=== PATIENT | male | born 1990 | race Caucasian/White ===

== ENCOUNTER 2017-10-26 11:47 | Inpatient (IN) | payer SELFPAY ==
[2017-10-26 12:27] LABS: Urine Appearance Clear; Urine Blood Negative (Negative); Urine Color Yellow; Urine Ketones Negative (Negative); Urine Protein Negative (Negative); Urine Specific Gravity 1.021 (1.010-1.030); Urine Urobilinogen Negative (Negative)
[2017-10-26 13:40] LABS: ABS Basophils 0 10^3/ul (0-0.2); ABS Eosinophils 0.1 10^3/ul (0-0.6); ABS Lymphocytes 1.7 10^3/ul (1.0-4.8); ABS Monocytes 0.3 10^3/ul (0-0.8); ABS Neutrophils 2.4 10^3/ul (1.5-7.7); ABS Nucleated RBC 0 10^3/ul; Eosinophil % 2.7 % (0-6); Hematocrit 40 % (42-52); Hemoglobin 13.6 g/dl (14.0-18.0); Lymphocyte % 37.5 % (25-47); Mean Corpuscular HGB Conc 34 g/dl (31-36); Mean Corpuscular Hemoglobin 30 pg (27-31); Mean Corpuscular Volume 87 fL (80-94); Mean Platelet Volume 7.6 um3 (7.4-10.4); Nucleated Red Blood Cells % 0; Platelet Count 279 10^3/ul (150-450); Red Blood Count 4.58 10^6/ul (4.0-5.4); Red Cell Distribution Width 13 % (10.5-15); White Blood Count 4.6 10^3/ul (3.5-10.8)
[2017-10-26 14:00] LABS: EGFR Non-African American 90.3 (>60)
[2017-10-26] MEDS ORDERED: Acetaminophen TAB* 325 MG PO PRN (15:05)
[2017-10-26] MEDS ORDERED: Al Hydrox/Mg Hydrox/Simet LIQ* 30 ML UDC PO PRN (15:05)
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
[2017-10-27] MEDS ORDERED: Vitamin THERAPEUTIC TAB ONE (09:07)
[2017-10-27] MEDS: Vitamin THERAPEUTIC TAB PO SCH (09:07)
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
[2017-10-28 08:09] VITALS: BP 99/72
[2017-10-28] MEDS: Vitamin THERAPEUTIC TAB PO SCH (08:52)
--- NOTE | 2017-10-28 14:48 | DS ---
Subjective - Subjective Service Types: [id number] [facility] DC Day Mgmt simple under 30 min Discharge Date: 10/28/17 Subjective: Patient reports "I want to live." He state he has had multiple supportive conversations with his parents and ex-girlfriend. He hopes to attend weekly talk therapy. He states he learned much from programming on the unit and wants to be better at time management. He expressed interest in volunteering and policy writer sales gave him suggestions of [facility] and [facility]. Objective - Appearance Appearance: Well Developed/Nourished Dysmorphic Features: No Hygiene: Normal Grooming: Well Kept - Behavior Psychomotor Activities: Normal Exhibits Abnormal Movement: No - Attitude and Relatedness Attitude and Relatedness: Cooperative Eye Contact: Good - Speech Quality: Unpressured Latencies: Normal Quantity: Appropriate - Mood Patient's Decription of Mood: "Good" - Affect Observed Affect: Good Affect Consistent with: Euthymia - Thought Process Patient's Thought Process: Coherent, Goal Directed Thought Content: No Passive Wish, No Suicidal Planning, No Homicidal Ideation, No Paranoid Ideation - Sensorium Experiencing Hallucinations: No, Sensorium is Clear Type of Hallucinations: Visual: No, Auditory: No, Command: No - Level of Consciousness Level of Consciousness: Alert Orientation: Yes Intact, Yes Orientated to Time, Yes Orientated to Place, Yes Orientated to Person - Impulse Control Impulse Control: Intact - Insight and Judgement Insight and Judgement: Good - Group Participation Particating in Group Activities: Yes - Medication Management Medication Management Adherence: No - none ordered Treatment Course & Assessment Clinical Course & Impression: Patient presented to ED as suggested by intake high school social studies tutor at [facility]. He reports increased depressed mood, anxiety and onset of suicidal thoughts. He has been financially strained due to loss of job, transportation and housing. He started a job this week and is hopeful yet anxious. Patient was admitted to adult BSU on voluntary status. He was placed on 15min checks for safety and participated in therapeutic milieu and programming. He participated in psychiatric interview and endorsed depressive symptoms. He declined offer of psychopharmacology. He states he would prefer to pursue therapy first. Patient requested to be discharged the first day but was agreeable to remain at least another day for full evaluation and benefit of programming. Patient's family members visited and were supportive. He learned about family history of depression and was surprised when his parents shared their experiences. Halina Willoughby LMSW contacted patient's father and verified agreement with discharge plan. Patient was coordinated with medicaid navigator to assist with health care insurance. He was given an appt at [facility] to re-establish primary care. Merits Inpatient Hospitalization: No Clear for Discharge: Adequate Clinical Respons, Acceptable Safety Profile, Low Utility of Inpt Care Inpatient DSM-V Dx: F32.89 Discharge Planning - Discharge Planning Discharge Plan: Outpatient Follow Up Outpatient [facility]: [facility] Recommendations for Continuing Care: Psychotherapy, Primary Care Followup Medications: none. Discharge Planning: Prescriptions provided for discharge [] Yes [X] No Follow up care details: PCP: Dr Argueta on Wednesday, november 03 at 3:20pm. [facility]: You have an intake scheduled on Wednesday (tomorrow) at 9:30 with Billie Werner Patient response to discharge plan: [X] eager for discharge [X] agreeable with discharge plan [] ambivalent about discharge [] disagrees with discharge today
== END 2017-10-28 12:10 | disposition home or self-care (01) | DRG 885 ==
LOC: ED 11:47 → BSU 15:05 → ED 16:14
PROVIDERS: ADMIT Psychiatry & Neurology Psychiatry; ATTEND Psychiatry & Neurology Psychiatry
DX: F32.89 Other specified depressive episodes (principal); R45.851 Suicidal ideations; F41.9 Anxiety disorder, unspecified; Z62.810 Personal history of physical and sexual abuse in childhood; F12.10 Cannabis abuse, uncomplicated; Z83.3 Family history of diabetes mellitus; Z81.8 Family history of other mental and behavioral disorders; Z72.89 Other problems related to lifestyle
CPT/HCPCS: 36415; 80053; 80307; 80320; 80329; 81003; 84443; 85025; 99222; 99238; 99284; A9270-GY; G0480

== ENCOUNTER 2019-02-02 16:39 | Inpatient (IN) | payer SELFPAY ==
--- NOTE | 2019-02-02 17:21 | ED ---
Psychiatric Complaint - HPI Summary HPI Summary: This patient is a 28 year old M presenting [facility] accompanied by parents with a chief complaint of depression since last month. Pt says he is getting in his head, feeling sad. This may have been triggered by past relationship and work. Pt has a possible Hx of depression. He reports he does not currently have thoughts of hurting himself. - History Of Current Complaint Chief Complaint: EDMentalHealth Time Seen by Provider: 02/02/19 17:11 Hx Obtained From: Patient Onset/Duration: Lasting Weeks Timing: Weeks Character: Depressed Aggravating Factor(s): Recent Stress Alleviating Factor(s): Nothing Related History: Positive For: Prior Psychiatric Issues Recent Stressor(s): Relationship, Job - Allergies/Home Medications Allergies/Adverse Reactions: Allergies Allergy/AdvReac Type Severity Reaction Status Date / Time No Known Allergies Allergy Verified 02/02/19 20:41 PMH/Surg Hx/FS Hx/Imm Hx Endocrine/Hematology History: Denies: Hx Diabetes, Hx Thyroid Disease Cardiovascular History: Denies: Hx Congestive Heart Failure, Hx Deep Vein Thrombosis, Hx Hypertension , Hx Myocardial Infarction, Hx Pacemaker/ICD Respiratory History: Reports: Hx Asthma - pt reports hx of "in elementary school " Denies: Hx Chronic Obstructive Pulmonary Disease (COPD), Hx Lung Cancer, Hx Pneumonia, Hx Pulmonary Embolism GI History: Denies: Hx Gall Bladder Disease, Hx Gastrointestinal Bleed, Hx Ulcer, Hx Urosepsis History: Denies: Hx Kidney Stones, Hx Renal Disease Sensory History: Denies: Hx Contacts or Glasses, Hx Hearing Aid Opthamlomology History: Denies: Hx Contacts or Glasses Neurological History: Denies: Hx Dementia, Hx Migraine, Hx Seizures, Hx Transient Ischemic Attacks (TIA) Psychiatric History: Denies: Hx Anxiety, Hx Attention Deficit Hyperactivity Disorder, Hx Eating Disorder, Hx Depression, Hx Panic Disorder, Hx Post Traumatic Stress Disorder, Hx Inpatient Treatment, Hx Community Mental Health Tx, Hx Schizophrenia, Hx Bipolar Disorder, Hx Suicide Attempt, Hx of Violent Episodes Against Others, Hx Substance Abuse, Other Psychiatric Issues/Disorders - Surgical History Surgery Procedure, Year, and Place: pt denies surgical hx Infectious Disease History: No Infectious Disease History: Denies: Hx Clostridium Difficile, Hx Hepatitis, Hx Human Immunodeficiency Virus (HIV), Hx of Known/Suspected MRSA, Hx Shingles, Hx Tuberculosis, Hx Known/ Suspected VRE, Hx Known/Suspected VRSA, History Other Infectious Disease, Traveled Outside the [place] in Last 30 Days - Family History Known Family History: Positive: Diabetes - Mother Negative: Cardiac Disease, Hypertension, Seizure Disorder, Blood Disorder Family History: Mother: depression - Social History Occupation: Employed Full-time Alcohol Use: Occasionally Alcohol Amount: pt reports drinking alcohol a "few times a month" Substance Use Type: Reports: Marijuana Substance Use Comment - Amount & Last Used: pt reports using a "few times a month" Smoking Status (MU): Light Every Day Tobacco Smoker Amount Used/How Often: pt denies tobacco use Length of Time of Smoking/Using Tobacco: pt denies tobacco use Have You Smoked in the Last Year: No Review of Systems Negative: Fever Positive: Depressed All Other Systems Reviewed And Are Negative: Yes Physical Exam - Summary Physical Exam Summary: VITAL SIGNS: Reviewed. GENERAL: Patient is a well-developed and nourished male who is lying comfortable in the stretcher. Patient is not in any acute respiratory distress. HEAD AND FACE: No signs of trauma. No ecchymosis, hematomas or skull depressions. No sinus tenderness. EYES: PERRLA, EOMI x 2, No injected conjunctiva, no nystagmus. EARS: Hearing grossly intact. Ear canals and tympanic membranes are within normal limits. MOUTH: Oropharynx within normal limits. NECK: Supple, trachea is midline, no adenopathy, no JVD, no carotid bruit, no c- spine tenderness, neck with full ROM. CHEST: Symmetric, no tenderness at palpation. LUNGS: Clear to auscultation bilaterally. No wheezing or crackles. CVS: Regular rate and rhythm, S1 and S2 present, no murmurs or gallops appreciated. ABDOMEN: Soft, non-tender. No signs of distention. No rebound, no guarding, and no masses palpated. Bowel sounds are normal. EXTREMITIES: FROM in all major joints, no edema, no cyanosis or clubbing. NEURO: Alert and oriented x 3. No acute neurological deficits. Speech is normal and follows commands. SKIN: Dry and warm. PSYCH: Depressed, quiet, and denies any suicidal thoughts or plan. No homicidal thoughts or plan. No signs of psychosis or pressure speech. No tangential speech. Triage Information Reviewed: Yes Vital Signs On Initial Exam: Initial Vitals Temp Pulse Resp BP Pulse Ox 98.7 F 94 18 133/81 96 07/11/19 16:58 02/02/19 16:58 02/02/19 16:58 02/02/19 16:58 02/02/19 16:58 Vital Signs Reviewed: Yes Diagnostics - Vital Signs Vital Signs Temp Pulse Resp BP Pulse Ox 02/02/19 16:58 98.7 F 94 18 133/81 96 - Laboratory Result Diagrams: 02/02/19 17:18 02/02/19 17:18 Lab Statement: Any lab studies that have been ordered have been reviewed, and results considered in the medical decision making process. Course/Dx - Course Assessment/Plan: Blood work w/o a significant abnormality. He is medically cleared. He is awaiting a MHE. Patient is hemodynamically stable and A+O x 3. Patient will be signed out to Dr. Barrera at shift change at 1900. - Differential Dx/Clinical Impression Provider Diagnosis: Depression Discharge - Sign-Out/Discharge Documenting (check all that apply): Sign-Out Patient Signing out patient TO: Jose Barrera - Sign out at 1900 on 02/02/[address] Barrera pending mental health evaluation. Patient Received Moderate/Deep Sedation with Procedure: No - Discharge Plan Condition: Stable Disposition: PSYCHIATRIC FACILITY-[facility] - Attestation Statements Document Initiated by Rashard: Yes Documenting Scribe: Chuyita Urban Provider For Whom Rashard is Documenting (Include Credential): Dr. Aldo Sanders MD Scribe Attestation: Chuyita Giles scribed for Dr. Aldo Sanders MD on 02/03/19 at 0823. Scribe Documentation Reviewed: Yes Provider Attestation: The documentation as recorded by the Chuyita watts accurately reflects the service I personally performed and the decisions made by me, Dr. Aldo Sanders MD Status of Scribe Document: Viewed
[2019-02-02 17:26] LABS: ABS Eosinophils 0.1 10^3/ul (0-0.6); ABS Lymphocytes 1.5 10^3/ul (1.0-4.8); ABS Monocytes 0.3 10^3/ul (0-0.8); ABS Neutrophils 4.4 10^3/ul (1.5-7.7); Eosinophil % 1.1 %; Hematocrit 43 % (42-52); Hemoglobin 14.7 g/dL (14.0-18.0); Lymphocyte % 24.1 %; Mean Corpuscular HGB Conc 34 g/dL (31-36); Mean Corpuscular Hemoglobin 30 pg (27-31); Mean Corpuscular Volume 88 fL (80-94); Mean Platelet Volume 7.7 fL (7.4-10.4); Nucleated Red Blood Cells % 0.1; Platelet Count 284 10^3/uL (150-450); Red Cell Distribution Width 14 % (10-15); White Blood Count 6.3 10^3/uL (3.5-10.8)
[2019-02-02 17:36] LABS: Urine Appearance Clear; Urine Bilirubin Negative (Negative); Urine Blood Negative (Negative); Urine Color Straw; Urine Glucose Negative (Negative); Urine Ketones Negative (Negative); Urine Nitrite Negative (Negative); Urine Protein Negative (Negative); Urine Specific Gravity 1.008 (1.010-1.030); Urine Urobilinogen Negative (Negative)
[2019-02-02 17:43] LABS: ALT 19 U/L (7-52); AST 18 U/L (13-39); Albumin 4.9 g/dL (3.2-5.2); Albumin/Globulin Ratio 1.6 (1-3); Alkaline Phosphatase 45 U/L (34-104); Anion Gap 9 mmol/L (2-11); BUN/Creatinine Ratio 15.1 (8-20); Blood Urea Nitrogen 16 mg/dL (6-24); CO2 Carbon Dioxide 23 mmol/L (22-32); Calcium 9.7 mg/dL (8.6-10.3); Chloride 108 mmol/L (101-111); EGFR African American 101.4 (>60); EGFR Non-African American 83.8 (>60); Glucose 121 mg/dL (70-100); Potassium 3.6 mmol/L (3.5-5.0); Sodium 140 mmol/L (135-145); Total Protein 7.9 g/dL (6.4-8.9)
[2019-02-02 18:06] LABS: Acetaminophen < 15 mcg/mL; Alcohol 59 mg/dL (<10); Salicylate < 2.50 mg/dL (<30)
[2019-02-02 18:18] LABS: Urine Benzodiazepine Screen None Detected (None Detect); Urine Opiates Screen None Detected (None Detect)
[2019-02-02 18:20] LABS: TSH (Thyroid Stimulating Horm) 0.69 mcIU/mL (0.34-5.60)
--- NOTE | 2019-02-02 19:44 | ED ---
Progress - Progress Note Progress Note: Pt is a signout from Dr. Sanders pending MHE. Per Dr. Roper, the pt will be admitted with dx of unspecified depression. Course/Dx - Course Course Of Treatment: Pt is a signout from Dr. Sanders pending MHE. Per Dr. Roper , the pt will be admitted with dx of unspecified depression. - Diagnoses Provider Diagnoses: Depression Discharge - Sign-Out/Discharge Documenting (check all that apply): Patient Departure, Receiving Sign-Out Receiving patient FROM: Aldo Sanders - Discharge Plan Condition: Stable Disposition: PSYCHIATRIC FACILITY-[facility] - Billing Disposition and Condition Condition: STABLE Disposition: Psychiatric Facility [facility] - Attestation Statements Document Initiated by Scribe: Yes Documenting Scribe: Ariadne Collazo Provider For Whom Rashard is Documenting (Include Credential): Jose Barrera MD. Scribe Attestation: Ariadne Giles, scribed for Jose Barrera MD. on 02/03/19 at 0618. Scribe Documentation Reviewed: Yes Provider Attestation: The documentation as recorded by the scribeAriadne accurately reflects the service I personally performed and the decisions made by Jose charles MD. Status of Scribe Document: Viewed
[2019-02-02] MEDS ORDERED: traZODone TAB* 50 MG TAB ONE (20:57)
[2019-02-02] MEDS ORDERED: Acetaminophen TAB* 325 MG ONE (20:57)
[2019-02-02] MEDS ORDERED: traZODone TAB* 50 MG TAB PO PRN (23:03)
[2019-02-02] MEDS ORDERED: Acetaminophen TAB* 325 MG PO PRN (23:04)
[2019-02-02] MEDS ORDERED: Al Hydrox/Mg Hydrox/Simet LIQ* 30 ML UDC PO PRN (23:04)
--- NOTE | 2019-02-03 08:47 | HP ---
H&P (Free Text) History and Physical: Justification for admission: Immediate Safety. CC " I feel guilty" The patient was brought to [facility] after having suicidal ideation. He thought about using tools that he has but did not have a specific plan. His current stressors include a break up with his girlfriend a month ago. He mentions that he spoke to her this week and it made him feel guilty about sacrificing his relationship to go on a hike with his cousin. He reported punching himself in the face out of frustration. He plans to go on a hike with his from [place] to [place] taking 6 months to complete. He denied access to firearms or stockpiles of medications. 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 The patient denied homicidal ideation intent or plan. The patient denied auditory and/ or visual hallucinations. Of note he expressed feeling that during his last admission he was not completely honest with himself or others and did not disclose that there was anything wrong. MDD He reports feeling depressed for the last month. He notes that he becomes depressed twice a year usually around the spring but not during the change of night hours. He reported having crying spells , feeling empty inside, feelings of hopelessness , and worthlessness. He reported interruption of sleep and overwhelming feelings of guilt. Anxiety He reportd having symptoms of anxiety such as having times where heart feels that it is beating out of chest , sweaty palms, or shallow breathing. With the last episode being a day ago. Denied having uncomfortable or intrusive thoughts. Denied feeling restless, high strung, or worrying too much most of the time. Bipolar Denied symptoms of naty such as having many ideas at once. Denied increased talkativeness where no one can interrupt. Denied feeling irritable most of the time while having an persistent abundance of energy most of the day without the use of energy drinks, stimulants, or recreational drug use. Denied an increase in intensity in goal directed activities. Denied having the decreased need to sleep for days , having prolonged elevated mood , or feeling on top of the world. Denied impulsive risky sexual encounters. Denied spending money recklessly , going on spending sprees wiping out savings. Denied impulsively traveling out of town or country, having super wilson, and unrealistic wealth or fame. Psychosis Does not endorse hearing things that other people do not hear or seeing things other people do not see. Denied feeling that TV is making references. Denied feeling that people are spying , following , or reading their thoughts. Phobias: Patient denied having excessive fear of a particular thing or situation. Eating disorders: Patient denied having excessive eating habits or feelings of guilt after eating. Denied repeated episodes of self induced vomiting after eating. PTSD Denied flashbacks, nightmares and avoidance of a prior traumatic event. PAST PSYCHIATRIC HISTORY: Prior Diagnosis : Major Depressive Disorder History of past Psychiatric Hospitalizations: 1 prior psychiatric admission October 2017. History of past suicide/homicide attempts : Denied past suicide attempts. Denied past homicidal incidents. Outpatient follow-up: [facility] Medications: No past trials of medication Guardianship: None. FAMILY HISTORY: - Suicide: Denied family history of suicide. - Mental illness: Denied a history of mental health in immediate family members. - Substance abuse: Denied substance abuse among family members. SUBSTANCE ABUSE HISTORY: He uses cannabis daily. He reported drinking 4-5 beers yesterday before admission. On average he noted rarely drinking alcohol other than a beer or two during social occasions Denied using tobacco, heroin cocaine or other illicit substances. Denied abusing pills for recreational use. Denied past Substance abuse treatment. SOCIAL HISTORY: He was born and raised in [place] by both of his parents until they when he was 7 years old. He completed high school and some college and dropped out after attending a few semesters. He is single has no children and is currently staying with a friend. Currently unemployed and previously worked in [email or web address] and [employer]. - Legal history: Denied - service history: Denied PAST MEDICAL HISTORY: Denied heart disease, diabetes, cancer and/ or other medical conditions. - Allergies: Denied drug or other allergies. Physical Exam: Please see ED note Mental Status Exam on Admission APPEARANCE : 28 year old male who appears stated age. Patient is not malodourous, and appears to have fair hygiene and grooming. BEHAVIOR: Cooperative , calm EYE CONTACT: Fair PSYCHOMOTOR ACTIVITY: No psychomotor agitation or retardation. MOVEMENTS: No abnormal movements observed. SPEECH : Normal rate, rhythm, volume and tone. MOOD : "Sad " AFFECT : Type is depressed Range is blunted with shallow depth Mood Congruent THOUGHT PROCESS: Formulated and organized in a logical, linear goal directed manner. No flight of ideas, neologism (made up words) , perseveration , tangential , loose associations , or circumstantiality. THOUGHT CONTENT: no delusions, obsessions, phobias or preoccupations. PERCEPTION: No current auditory or visual hallucinations. Doesnt appear to be responding to internal cues. No evidence of depersonalization , de-realization, or illusions SUICIDALITY Recent suicidal ideation HOMICIDALITY Denied homicidal ideation, intent or plan. Insight/judgment: Poor insight and judgment ORIENTATION: Oriented to self, location, and time. Diagnosis on Admission: Major Depressive Disorder, severe, without psychotic features. Assessment: 28 year old with history of depression came to the hospital with suicidal ideation and was admitted to the BSU at [facility]. Plan #Admit to BSU, Q15 minute observation. Start regular diet. Encourage participation in activities on the milieu. #Patient evaluated in ED and was determined by the emergency room Physician to be medically fit for admission to the BSU. # Justification for Admission: For immediate safety per outlined in the [place] Mental Hygiene Code. # The patient requires psychiatric inpatient admission at this time to assure safety, receive treatment and work toward stabilization. # Labs ordered: CBC, CMP, UDS, TSH, HBA1c, TSH, Toxicology screen, Urine analysis, and lipid profile. # Obtain collateral information once release is signed. # Collaboration with Flake [employer]rier Derrick Glover #Start lexapro 10mg daily for depression. #Goals before discharge include: To eliminate/ reduce suicidal ideation The risks, benefits, and alternative treatment options were discussed as well as of the risks of refusing treatment. After this discussion and an acknowledgement of this understanding was made. A risk/ benefit assessment of treatment was considered and discussed with the patient. When comparing the risks of treatment with the dangers of not receiving treatment, the benefits of treatment outweigh the treatment risks at this time. Risks of allergy, suicidal ideation, behavioral changes, dystonia, rashes, electrolyte imbalances, movement disorders, cardiac conduction changes, serotonin syndrome, metabolic risks were among some of the risks discussed. Sodium 140 mmol/L (135-145) 02/02/19 17:18 Potassium 3.6 mmol/L (3.5-5.0) 02/02/19 17:18 BUN 16 mg/dL (6-24) 02/02/19 17:18 Creatinine 1.06 mg/dL (0.67-1.17) 02/02/19 17:18 Calcium 9.7 mg/dL (8.6-10.3) 02/02/19 17:18 AST 18 U/L (13-39) 02/02/19 17:18 ALT 19 U/L (7-52) 02/02/19 17:18 Vital Signs Temp Pulse Resp BP Pulse Ox 98.3 F 56 16 133/78 100 02/03/19 08:00 02/03/19 08:00 02/03/19 10:52 02/03/19 08:00 02/03/19 08:00 Acetaminophen (Tylenol Tab*) 650 mg PO Q4H PRN PRN Reason: PAIN or TEMP > 101 F Al Hydrox/Mg Hydrox/Simethicone (Maalox Plus*) 30 ml PO Q4H PRN PRN Reason: INDIGESTION Escitalopram Oxalate (Lexapro *) 10 mg PO DAILY ANTONETTE Trazodone HCl (Desyrel Tab*) 50 mg PO BEDTIME PRN PRN Reason: SLEEP
--- NOTE | 2019-02-03 12:05 | PN ---
BSU: Group Therapy Note - Service Type Service Type: 59070 Group Psychotherapy - Cognitive Behavioral Group Therapy ( CBT):Patient was attentive and participatory in CBT programming this morning, and remained in good behavioral control. Patient expressed positive insights regarding relevant treatment interventions and goals.
[2019-02-03] MEDS: Escitalopram * 10 MG TAB PO SCH (15:23)
[2019-02-03] MEDS: traZODone TAB* 50 MG TAB PO PRN (20:46)
[2019-02-04] MEDS: Escitalopram * 10 MG TAB PO SCH (09:25)
--- NOTE | 2019-02-04 12:59 | PN ---
Subjective - Subjective Date of Service: 02/04/19 Service Type: [id number] Hosp care 15 min low complexity Subjective: Salo is seen in weekend coverage for Dr. Almanza. The patient is pleasant and calm, eating his lunch. He is tolerating the initiation of escitalopram therapy without any untoward effects and denies SI or thoughts to harm himself or others. Staff reports indicate that he is adherent with milieu expectations and worthy of enhanced privileges on the unit. Salo has no complaints. Objective - General Observations Appearance: Well Groomed Appears Stated Age: Yes Stature: WNL Posture: WNL Eye Contact: Average Behavior/Activity: WNL - Interaction Observations Attitude Towards Examiner: Cooperative Stated Mood: Euthymic Affect: Full Speech Pattern/Tone: Clear, Appropriate, Normal Volume Thought Process: Coherent, Over Inclusive Thought Content: WNL Hallucination Type: None Delusion Type: None - Cognitive Function Orientation: A&O x 4 Level of Consciousness: Awake Cognition: WNL Estimated Intelligence: Normal Insight: WNL Judgment Within Normal Limits: Yes - Medication Compliance Cooperative with Inpatient Medication Regimen: Yes - Group Participation Participates in Group Activities: Yes Assessment - Assessment Merits Inpatient Hospitalization: For Immediate Safety, For Stabilization Inpatient DSM-V Dx: F33.2 Clinical Impression: 28 y.o. single, white male with one prior psychiatric admission here at [facility] presents to the hospital with SI following the breakup with his girlfriend. BSU: Problem List - Patient Problems (1) MDD (major depressive disorder), recurrent episode, severe Current Visit: Yes Status: Acute Priority: High Code(s): F33.2 - MAJOR DEPRESSV DISORDER, RECURRENT SEVERE W/O PSYCH FEATURES SNOMED Code(s): 669184643041 Plan - Plan Treatment Plan: Name: SALO MORELOS Birthdate: 1990 [id number] Patient is tolerating initiation of escitalopram 10mg PO qday without side effects. Continue intensive inpatient treatment. Continued Medication Management: Start Medication Medications: Current Medications Acetaminophen (Tylenol Tab*) 650 mg PO Q4H PRN PRN Reason: PAIN or TEMP > 101 F Al Hydrox/Mg Hydrox/Simethicone (Maalox Plus*) 30 ml PO Q4H PRN PRN Reason: INDIGESTION Escitalopram Oxalate (Lexapro *) 10 mg PO DAILY ANTONETTE Last Admin: 02/04/19 09:25 Dose: 10 mg Trazodone HCl (Desyrel Tab*) 50 mg PO BEDTIME PRN PRN Reason: SLEEP Last Admin: 02/03/19 20:46 Dose: 50 mg - Discharge Plan Discharge Plan: Inpatient Hospitalization
[2019-02-04] MEDS: traZODone TAB* 50 MG TAB PO PRN (21:04)
[2019-02-05 08:24] LABS: HDL Cholesterol 41.4 mg/dL
[2019-02-05] MEDS: Escitalopram * 10 MG TAB PO SCH (08:39)
[2019-02-05] MEDS: traZODone TAB* 50 MG TAB PO PRN ×2 (20:16→21:51)
[2019-02-06] MEDS ORDERED: Escitalopram * 10 MG TAB PO ONE (10:05)
--- NOTE | 2019-02-06 10:14 | PN ---
Subjective - Subjective Date of Service: 02/06/19 Service Type: [id number] Hosp care 35 min high complexity Subjective: Nursing Report: Patient was visible on unit, no chemical restraints or PRNs. Slept overnight without incident. He is attending group activities. CC: "Sad" Patient was seen and evaluated in the meeting room. The patient reported feeling sad after he spoke with his ex girlfriend. He became tearful and mentions that it reminded him that he misses her and knows that it makes things more difficult for himself when he speaks to her. He plans to complete a practice short hike before committing to the longer one with his cousin. He thinks that the 6 month hike may not be a good idea. He reported having adequate appetite and sleep. The patient reports attending and participating in day groups. Per nursing no behavioral issues or overnight events reported. Patient reported that he is tolerating medications without side effects. Objective - General Observations Appearance: Disheveled Appears Stated Age: Yes Stature: WNL Posture: WNL Eye Contact: Average Behavior/Activity: WNL - Interaction Observations Attitude Towards Examiner: Cooperative Stated Mood: Dysphoric Affect: Blunted Speech Pattern/Tone: Perseverating Thought Process: Coherent Perception: WNL Thought Content: Self-Deprecatory Hallucination Type: None Delusion Type: None - Cognitive Function Orientation: A&O x 4 Level of Consciousness: Awake - Medication Compliance Cooperative with Inpatient Medication Regimen: Yes - Group Participation Participates in Group Activities: Yes Assessment - Assessment Merits Inpatient Hospitalization: For Immediate Safety Inpatient DSM-V Dx: F33.2 Clinical Impression: 28 y.o. single, white male with one prior psychiatric admission here at [facility] presents to the hospital with SI following the breakup with his girlfriend. Plan - Plan Treatment Plan: Name: RIKI MORELOS Birthdate: 1990 [id number] Plan # Q30 minute observation with staff pass. # The patient requires psychiatric inpatient admission at this time to assure safety, receive treatment and work toward stabilization. # Obtain collateral information # Collaboration with Supervisor [employer] Derrick Glover # Increase lexapro 20mg daily for depression. # MMPI # Would benefit from CBT for cognitive distortions , catastrophizing. #Tentative Discharge: Tomorrow/ Wednesday Sodium 140 mmol/L (135-145) 02/02/19 17:18 Potassium 3.6 mmol/L (3.5-5.0) 02/02/19 17:18 BUN 16 mg/dL (6-24) 02/02/19 17:18 Creatinine 1.06 mg/dL (0.67-1.17) 02/02/19 17:18 Hemoglobin A1c 5.1 % (4.0-5.6) 02/05/19 07:35 Calcium 9.7 mg/dL (8.6-10.3) 02/02/19 17:18 AST 18 U/L (13-39) 02/02/19 17:18 ALT 19 U/L (7-52) 02/02/19 17:18 Triglycerides 116 mg/dL 02/05/19 07:35 Cholesterol 152 mg/dL 02/05/19 07:35 LDL Cholesterol 87 mg/dL 02/05/19 07:35 Vital Signs Temp Pulse Resp BP Pulse Ox 98.1 F 64 16 116/69 100 02/06/19 08:00 02/06/19 08:00 02/06/19 08:00 02/06/19 08:00 02/06/19 08:00 Continued Medication Management: Continue Outpt Medication Medications: Current Medications Acetaminophen (Tylenol Tab*) 650 mg PO Q4H PRN PRN Reason: PAIN or TEMP > 101 F Al Hydrox/Mg Hydrox/Simethicone (Maalox Plus*) 30 ml PO Q4H PRN PRN Reason: INDIGESTION Escitalopram Oxalate (Lexapro *) 20 mg PO DAILY ANTONETTE Trazodone HCl (Desyrel Tab*) 50 mg PO BEDTIME PRN PRN Reason: SLEEP Last Admin: 02/05/19 21:51 Dose: 50 mg - Discharge Plan Discharge Plan: Inpatient Hospitalization Outpatient Program: [facility]
[2019-02-06] MEDS: Escitalopram * 10 MG TAB PO SCH (11:53)
[2019-02-06] MEDS: traZODone TAB* 50 MG TAB PO PRN (22:37)
[2019-02-07 08:23] VITALS: BP 125/70
[2019-02-07] MEDS ORDERED: Escitalopram * 20 MG TABLET PO SCH (09:00)
--- NOTE | 2019-02-07 09:41 | DS ---
Subjective - Subjective Service Types: [address] [facility] Day Mgmt complex over 30 min Discharge Date: 02/07/19 Subjective: CC: " I am better" Patient looks forward to doing cross fit, trying a practice hike with his cousin and wishes to pursue to work as a [employer] The patient was seen and evaluated before discharge today. The patient reported having adequate appetite and sleep. The patient reports attending and participating in day groups. Per nursing no behavioral issues or overnight events reported. Patient reported tolerating medications without side effects. His ex girlfriend visited overnight and he was able to tolerate it well and felt prepared for his feeling to be challenged. He noted that he was in a good place and plans to focus on himself right now. Justification for admission: Immediate Safety. CC " I feel guilty" The patient was brought to [facility] after having suicidal ideation. He thought about using tools that he has but did not have a specific plan. His current stressors include a break up with his girlfriend a month ago. He mentions that he spoke to her this week and it made him feel guilty about sacrificing his relationship to go on a hike with his cousin. He reported punching himself in the face out of frustration. He plans to go on a hike with his from [place] to [place] taking 6 months to complete. He denied access to firearms or stockpiles of medications. He reported having poor sleep averaging 4-5 hours a night with advice clerk awakenings. The patient denied homicidal ideation intent or plan. The patient denied auditory and/ or visual hallucinations. Of note he expressed feeling that during his last admission he was not completely honest with himself or others and did not disclose that there was anything wrong. MDD He reports feeling depressed for the last month. He notes that he becomes depressed twice a year usually around the spring but not during the change of night hours. He reported having crying spells , feeling empty inside, feelings of hopelessness , and worthlessness. He reported interruption of sleep and overwhelming feelings of guilt. Anxiety He reportd having symptoms of anxiety such as having times where heart feels that it is beating out of chest , sweaty palms, or shallow breathing. With the last episode being a day ago. Denied having uncomfortable or intrusive thoughts. Denied feeling restless, high strung, or worrying too much most of the time. Bipolar Denied symptoms of naty such as having many ideas at once. Denied increased talkativeness where no one can interrupt. Denied feeling irritable most of the time while having an persistent abundance of energy most of the day without the use of energy drinks, stimulants, or recreational drug use. Denied an increase in intensity in goal directed activities. Denied having the decreased need to sleep for days , having prolonged elevated mood , or feeling on top of the world. Denied impulsive risky sexual encounters. Denied spending money recklessly , going on spending sprees wiping out savings. Denied impulsively traveling out of town or country, having super wilson, and unrealistic wealth or fame. Psychosis Does not endorse hearing things that other people do not hear or seeing things other people do not see. Denied feeling that TV is making references. Denied feeling that people are spying , following , or reading their thoughts. Phobias: Patient denied having excessive fear of a particular thing or situation. Eating disorders: Patient denied having excessive eating habits or feelings of guilt after eating. Denied repeated episodes of self induced vomiting after eating. PTSD Denied flashbacks, nightmares and avoidance of a prior traumatic event. PAST PSYCHIATRIC HISTORY: Prior Diagnosis : Major Depressive Disorder History of past Psychiatric Hospitalizations: 1 prior psychiatric admission October 2017. History of past suicide/homicide attempts : Denied past suicide attempts. Denied past homicidal incidents. Outpatient follow-up: [facility] Medications: No past trials of medication Guardianship: None. FAMILY HISTORY: - Suicide: Denied family history of suicide. - Mental illness: Denied a history of mental health in immediate family members. - Substance abuse: Denied substance abuse among family members. SUBSTANCE ABUSE HISTORY: He uses cannabis daily. He reported drinking 4-5 beers yesterday before admission. On average he noted rarely drinking alcohol other than a beer or two during social occasions Denied using tobacco, heroin cocaine or other illicit substances. Denied abusing pills for recreational use. Denied past Substance abuse treatment. SOCIAL HISTORY: He was born and raised in [place] by both of his parents until they when he was 7 years old. He completed high school and some college and dropped out after attending a few semesters. He is single has no children and is currently staying with a friend. Currently unemployed and previously worked in [employer] industry. - Legal history: Denied - service history: Denied PAST MEDICAL HISTORY: Denied heart disease, diabetes, cancer and/ or other medical conditions. - Allergies: Denied drug or other allergies. Physical Exam: Please see ED note Mental Status Exam on Admission APPEARANCE : 28 year old male who appears stated age. Patient is not malodourous, and appears to have fair hygiene and grooming. BEHAVIOR: Cooperative , calm EYE CONTACT: Fair PSYCHOMOTOR ACTIVITY: No psychomotor agitation or retardation. MOVEMENTS: No abnormal movements observed. SPEECH : Normal rate, rhythm, volume and tone. MOOD : "Sad " AFFECT : Type is depressed Range is blunted with shallow depth Mood Congruent THOUGHT PROCESS: Formulated and organized in a logical, linear goal directed manner. No flight of ideas, neologism (made up words) , perseveration , tangential , loose associations , or circumstantiality. THOUGHT CONTENT: no delusions, obsessions, phobias or preoccupations. PERCEPTION: No current auditory or visual hallucinations. Doesnt appear to be responding to internal cues. No evidence of depersonalization , de-realization, or illusions SUICIDALITY Recent suicidal ideation HOMICIDALITY Denied homicidal ideation, intent or plan. Insight/judgment: Poor insight and judgment ORIENTATION: Oriented to self, location, and time. Diagnosis on Admission: Major Depressive Disorder, severe, without psychotic features. Diagnosis on Discharge: Major Depressive Disorder,in partial remission. Condition at the time of discharge: At the time of discharge patient showed improvement of sleep and appetite. The patient was not a danger to self or others. The patient denied suicidal ideation , intent or plan. The patient denied homicidal targets, ideation, intent or plan. This patient participated in psychosocial rehabilitation and gained some insight into problems. The patient gained insight into mental illness, triggers, and treatment. The patient took medication as prescribed. The patient denied side effects of medication and objective signs of side effects were not evident. Therapy Resources were offered to the patient. Patient was given a supply of prescriptions at the time of discharge. The patient plans to attend follow up care with the follow up arrangements that were discussed and put in place. Patient was asked to keep appointments as scheduled, take medication as prescribed, have routine follow up care with their primary care physician and refrain from any use of alcohol or drugs. Objective - General Observations Appearance: Neat Appears Stated Age: Yes Stature: WNL Posture: WNL Eye Contact: Average Behavior/Activity: WNL - Interaction Observations Attitude Towards Examiner: Cooperative Stated Mood: Euthymic Affect: Full Speech Pattern/Tone: Clear Thought Process: Coherent Perception: WNL Thought Content: WNL Hallucination Type: None Delusion Type: None - Cognitive Function Orientation: A&O x 4 Level of Consciousness: Awake Cognition: WNL Judgment Within Normal Limits: Yes - Medication Compliance Cooperative with Inpatient Medication Regimen: Yes - Group Participation Participates in Group Activities: Yes Treatment Course & Assessment Clinical Course & Impression: Hospital course part A: 28 year old with history of depression came to the hospital with suicidal ideation and was admitted to the BSU at [facility]. Hospital course part B: Labs ordered included CBC, CMP, UDS, TSH, HBA1c, TSH, Toxicology screen, Urine analysis, MMPI, and lipid profile. Labs were reviewed and did not require the need for further evaluation. Vital signs were monitored during the course of admission. MMPI was ordered and parameters were not found to be elevated. The patient was admitted to the adult behavioral unit and placed on 15 minute check for safety. At a later time the patient was on Q30 minute observation and staff pass privileges. With those limits being extended , there were no occurrence of behavioral incidents. The patient did well on the unit and went to groups. Interacted with peers had adequate sleep and regular appetite. Tolerated medication changes without side effects. Group therapy and services were offered. The risks, benefits, and alternative treatment options were discussed as well as of the risks of refusing treatment. Treatment associated risks discussed. After this discussion made an acknowledgement of this understanding. Follow up care appointments were put in place for follow up care. The importance of monitoring for metabolic changes was discussed and acknowledgement of this understanding was made. Patient informed not to abruptly stop or start new medications before consulting with a medical professional. Improvements in patient from the time of admission include: Improved affect, sleep and decrease in anxiety. No longer suicidal and no longer having feelings of hopelessness. The patient expressed readiness for discharge home. The patient presents with a broader range of affect, and the absence of depressed mood, delusions, perceptual disturbances. The patient denied suicidal and or homicidal ideation intent or plan. Overall, the patient responded well to inpatient treatment as evidenced by their report of strengthening of coping mechanisms, reduced distress, and more positive outlook on circumstances. Of note there was an improvement of recognizing how emotional state can effect mood and behavior. Safety precautions were put in place which included involving the patient and their family to closely monitor for changes in mental state. In addition, implementing follow up care, screening for the need to remove/securing firearms , weapons and stockpile of medications. Patient/ family instructed to immediately call 911 should any safety concerns arise. The patient was advised of the 24 hour / 7 days a week availability of the emergency room and to call 911 in the event of an emergency such as being suicidal and/ or homicidal. The patient was informed of the contact information for [facility], Suicide Prevention and Crisis Services, National Suicide Prevention Lifeline, [facility], Alcoholics Anonymous, and [facility]. Medications started included lexapro 10mg po daily and increased to 20mg daily for depression. Trazodone 50mg at nighttime was given for sleep. He plans to use the coping skills that he learned during the course of his admission to manage stress. Family was contacted before discharge. The family confirmed that the patient is at their baseline and is in agreement with the discharge plan. They were advised on how the days following discharge can be a vulnerable period and to look out for warning signs associated with decompensation and progression of mental illness. They were notified of the resources available in the event these situations arise and confirmed that the patient has no access to firearms or stock piles of medications. Patient was not assaultive or a behavioral problem during the course of admission. The patient showed improvement of hygiene and was able to carry out activities of daily living. Patient will be discharged to live at home with his mother. Follow up appointment at [facility] and PCP Dr. Godoy. Patient informed of follow up appointment times. See more details for follow up care in the discharge plan. Risk factors: , single, history of depression. Recent change in relationship status. Protective factors: Currently no suicidal ideation, intent or plan. No prior history of suicide attempt. Has support system. No history of service. Currently no feelings of hopelessness, not in an occupation of social isolation, doesnt have multiple medical conditions, no family history of suicide, doesnt have access to firearms. Doesnt have command hallucinations and or psychotic features at this time. No current substance abuse. No history of alcohol abuse. Not an anniversary of a loss of a loved one. Currently future orientated. Patient engaged in treatment and compliant with medication. Merits Inpatient Hospitalization: No Clear for Discharge: Adequate Clinical Respons Inpatient DSM-V Dx: F33.2 Discharge Planning - Discharge Planning Discharge Plan: Outpatient Follow Up Outpatient [facility]: [facility] Recommendations for Continuing Care: Medication Management Medications: Current Medications Acetaminophen (Tylenol Tab*) 650 mg PO Q4H PRN PRN Reason: PAIN or TEMP > 101 F Al Hydrox/Mg Hydrox/Simethicone (Maalox Plus*) 30 ml PO Q4H PRN PRN Reason: INDIGESTION Escitalopram Oxalate (Lexapro *) 20 mg PO DAILY ANTONETTE Last Admin: 02/07/19 09:04 Dose: 20 mg Trazodone HCl (Desyrel Tab*) 50 mg PO BEDTIME PRN PRN Reason: SLEEP Last Admin: 02/06/19 22:37 Dose: 50 mg Discharge Planning: Prescriptions provided for discharge [x] Yes [] No Follow up care details as per social work arrangements. Patient response to discharge plan: [x] eager for discharge [] agreeable with discharge plan [] ambivalent about discharge [] disagrees with discharge today
== END 2019-02-07 14:00 | disposition home or self-care (01) | DRG 885 ==
LOC: ED 16:39 → BSU 20:08
PROVIDERS: ADMIT Psychiatry & Neurology Psychiatry; ATTEND Psychiatry & Neurology Psychiatry
DX: F33.2 Major depressive disorder, recurrent severe without psychotic features (principal); R45.851 Suicidal ideations; F12.90 Cannabis use, unspecified, uncomplicated
CPT/HCPCS: 36415; 80053; 80061; 80307; 80320; 80329; 81003; 83036; 84443; 85025; 90853; 99222; 99231; 99284; A9270-GY; G0480

== ENCOUNTER 2019-09-13 11:12 | Emergency (ER) | payer SELFPAY ==
[2019-09-13 11:50] VITALS: BP 130/64
--- NOTE | 2019-09-13 12:18 | UC ---
Head Injury HPI - HPI Summary HPI Summary: head injury x 2 hrs ago s/p fall at work , hit the back of his head no loc, no memory loss, + dizzy , lightheaded nausea and vomiting , photophobia, nothing makes his symptoms better or worse - History Of Current Complaint Chief Complaint: UCHeadInjury Stated Complaint: WC HEAD INJURY Time Seen by Provider: 09/13/19 11:52 Hx Obtained From: Patient Onset/Duration: Sudden Onset, Lasting Hours - 2, Still Present Severity Currently: Moderate Severity Initially: Moderate Pain Intensity: 5 Pain Scale Used: 0-10 Numeric Character: Dull Aggravating Factor(s): Nothing Alleviating Factor(s): Nothing Associated Signs And Symptoms: Positive: Nausea, Vomiting. Negative: LOC (Time In Secs./Mins/Hrs), LOC Duration Unknown, Confusion, Memory Loss, Seizure, Epistaxis, Dental Malocclusion, Neck Pain - Allergies/Home Medications Allergies/Adverse Reactions: Allergies Allergy/AdvReac Type Severity Reaction Status Date / Time No Known Allergies Allergy Verified 09/13/19 11:45 Home Medications: Home Medications NK [No Home Medications Reported] 09/13/19 [History Confirmed 09/13/19] PMH/Surg Hx/FS Hx/Imm Hx Previously Healthy: Yes Other History Of: Negative For: HIV, Hepatitis B, Hepatitis C - Surgical History Surgical History: None Surgery Procedure, Year, and Place: pt denies surgical hx - Family History Known Family History: Positive: Diabetes - Mother Negative: Cardiac Disease, Hypertension, Seizure Disorder, Blood Disorder Family History: Mother: depression - Social History Alcohol Use: Rare Alcohol Amount: pt reports drinking alcohol a "few times a month" Substance Use Type: Marijuana Substance Use Comment - Amount & Last Used: pt reports using a "few times a month" Smoking Status (MU): Former Smoker Amount Used/How Often: pt denies tobacco use Length of Time of Smoking/Using Tobacco: pt denies tobacco use Have You Smoked in the Last Year: No When Did the Patient Quit Smoking/Using Tobacco: pt denies tobacco use - Immunization History Most Recent Influenza Vaccination: unknown Most Recent Pneumonia Vaccination: unknown Review of Systems All Other Systems Reviewed And Are Negative: Yes Is Patient Immunocompromised?: No Physical Exam Triage Information Reviewed: Yes Appearance: Well-Nourished, Pain Distress Vital Signs: Initial Vital Signs Temp 98.6 F 09/13/19 11:45 Pulse 64 09/13/19 11:45 Resp 16 09/13/19 11:45 BP 130/64 09/13/19 11:45 Pulse Ox 98 09/13/19 11:45 Vital Signs Reviewed: Yes Eyes: Positive: Conjunctiva Clear ENT: Positive: Normal ENT inspection, Hearing grossly normal, Pharynx normal, TMs normal Neck exam: Normal Neck: Positive: Supple, Nontender, No Lymphadenopathy Respiratory: Positive: Chest non-tender, Lungs clear, Normal breath sounds Cardiovascular: Positive: RRR, No Murmur, Pulses Normal Abdominal Exam: Normal Abdomen Description: Positive: Nontender, Soft. Negative: CVA Tenderness (R), CVA Tenderness (L), Distended, Guarding Bowel Sounds: Positive: Present Neurological: Positive: Alert, Muscle Tone Normal, Fatigued Head Injury Course/Dx - Differential Dx/Diagnosis Provider Diagnosis: Concussion Discharge ED - Sign-Out/Discharge Documenting (check all that apply): Patient Departure All imaging exams completed and their final reports reviewed: No Studies - Discharge Plan Condition: Stable Disposition: HOME Patient Education Materials: Concussion (ED) Forms: *Work Release Referrals: Lazaro Godoy MD [Primary Care Provider] - 7 Days - Billing Disposition and Condition Condition: STABLE Disposition: Home
== END 2019-09-13 12:05 | disposition home or self-care (01) ==
LOC: UCCORT 11:12
DX: S06.0X0A Concussion without loss of consciousness, initial encounter (principal); Z87.891 Personal history of nicotine dependence; W01.10XA Fall on same level from slipping, tripping and stumbling with subsequent striking against unspecified object, initial encounter; Y92.9 Unspecified place or not applicable; Y99.0 Civilian activity done for income or pay
CPT/HCPCS: 99211; G0463

== ENCOUNTER 2019-09-18 16:32 | Emergency (ER) | payer SELFPAY ==
[2019-09-18 16:44] VITALS: BP 114/76
--- NOTE | 2019-09-18 17:09 | UC ---
Head Injury HPI - HPI Summary HPI Summary: 29-year-old male comes in with a chief complaint of headache and difficulty sleeping and not feeling well after head injury. Patient reports he slipped and fell on ice on September 13, 2019 at work and struck the back of his head on the running board of the truck. No loss of consciousness at that time. He did vomit twice. Initially he had dental pain but that is improved. He continues to have headaches. Headaches or worse when laying down. At their worst at 8 out of 10 right now it's about a 5 out of 10. Has been taking ibuprofen Tylenol which has helped some. Is not nauseous at this time. Driving the vehicle does make his symptoms worse. No focal weakness or numbness. Patient does have mild neck pain about a 2 out of 10. The light does bother his eyes. - History Of Current Complaint Chief Complaint: UCHeadInjury Stated Complaint: HEAD INJURY Time Seen by Provider: 09/18/19 16:46 Pain Intensity: 5 - Allergies/Home Medications Allergies/Adverse Reactions: Allergies Allergy/AdvReac Type Severity Reaction Status Date / Time No Known Allergies Allergy Verified 09/18/19 16:45 Home Medications: Home Medications NK [No Home Medications Reported] 09/13/19 [History Confirmed 09/18/19] PMH/Surg Hx/FS Hx/Imm Hx Previously Healthy: Yes Other History Of: Negative For: HIV, Hepatitis B, Hepatitis C - Surgical History Surgical History: None Surgery Procedure, Year, and Place: pt denies surgical hx - Family History Known Family History: Positive: Diabetes - Mother Negative: Cardiac Disease, Hypertension, Seizure Disorder, Blood Disorder Family History: Mother: depression - Social History Alcohol Use: Rare Alcohol Amount: pt reports drinking alcohol a "few times a month" Substance Use Type: Marijuana Substance Use Comment - Amount & Last Used: pt reports using a "few times a month" Smoking Status (MU): Former Smoker Amount Used/How Often: pt denies tobacco use Length of Time of Smoking/Using Tobacco: pt denies tobacco use Have You Smoked in the Last Year: No When Did the Patient Quit Smoking/Using Tobacco: pt denies tobacco use - Immunization History Most Recent Influenza Vaccination: unknown Most Recent Pneumonia Vaccination: unknown Review of Systems All Other Systems Reviewed And Are Negative: Yes Constitutional: Positive: Other - SEE HPI Skin: Positive: Negative Eyes: Positive: Other - SEE HPI ENT: Positive: Other - SEE HPI Respiratory: Positive: Negative Cardiovascular: Positive: Negative Gastrointestinal: Positive: Vomiting, Nausea Motor: Positive: Negative Neurovascular: Positive: Negative Musculoskeletal: Positive: Other: - SEE HPI Neurological/Mental Status: Positive: Headache Psychological: Positive: Negative Is Patient Immunocompromised?: No Physical Exam Triage Information Reviewed: Yes Appearance: Well-Appearing, No Pain Distress, Well-Nourished Vital Signs: Initial Vital Signs Temp 98.2 F 09/18/19 16:41 Pulse 85 09/18/19 16:41 Resp 18 09/18/19 16:41 BP 114/76 09/18/19 16:41 Pulse Ox 99 09/18/19 16:41 Vital Signs Reviewed: Yes Eye Exam: Normal Eyes: Positive: Conjunctiva Clear, Other: - PERRLA EOMI mild photophobia. ENT: Positive: Pharynx normal, TMs normal - No hemotympanum., Other - The occiput is nontender to palpation there is no crepitus. Neck: Positive: Supple, Other: - Mildly tender to palpation midline and posterior aspects of the neck. Respiratory: Positive: Lungs clear, Normal breath sounds, No respiratory distress Cardiovascular: Positive: RRR Musculoskeletal: Positive: Strength Intact, ROM Intact Neurological: Positive: Alert, Muscle Tone Normal Psychological: Positive: Age Appropriate Behavior Skin Exam: Normal Head Injury Course/Dx - Course Course Of Treatment: Email Marketing Processor: Aldo Khalil C ([id number]) Supervisor [employer] Vehicle: FRANCES ( FRANCES) Report Date: 09/18/2019 17:22:00 Report Status: Final ====== Start of Report Content Patient Name: RIKI MORELOS Medical Record#: [id number] Ordering Physician: Luis Dumont MD Acct.#: [id number] : 1990 Age: 29 Sex: M Location: [facility] Exam Date: 09/18/191656 ADM Status: REG ER Order Information: CT BRAIN WO Accession Number: [id number] CPT: 55910 Indication: Nausea and headache post fall September 13, 2019. COMPARISON: March 20, 2009 CT Technique: Noncontrast CT vertex of skull through foramen magnum. Report: EXTRA-AXIAL SPACES : Unremarkable cerebral sulci and cerebellar fissures for age. Normal ventricles for age with mild asymmetry of the lateral ventricles unchanged from the 2009 exam without concern. Patent basal cisterns. INTRA-AXIAL: Henry matter white matter differentiation is preserved without evidence for edema. No intra or extra axial hemorrhage, mass, or fluid collection detected at the cerebrum, cerebellum, or brain stem. ORBITS: No lesion or inflammatory process evident at the visualized orbits. PARANASAL SINUSES / MASTOIDS: Clear visualized paranasal sinuses. Clear mastoid air spaces. CALVARIUM AND SKULL BASE: Negative for fracture or suspicious lesions of the calvarium or skull base. SCALP: Unremarkable scalp. IMPRESSION: #. No CT evidence for traumatic brain injury or acute intracranial process. <Electronically signed by Aldo Khalil MD in OV> 09/18/191718 Dictated By: Aldo Khalil MD Dictated Date/Time: 09/18/191715 Transcribed Date/Time: 09/18/191715 Copy to: CC:Lazaro Godoy MD; Luis Dumont MD Imaging - [facility] Imaging - [facility] Imaging - [facility] [address] [address] ph ([phone]) ph ([phone]) ph [phone]) End of Report Content I discussed the CT results with the patient. Also discussed continued treatment of the concussion. Patient will follow up with workman's comp Dr. Lozano or with sports medicine for his concussion. I let the patient know that if he got worse he should get reevaluated in the emergency department. - Differential Dx/Diagnosis Provider Diagnosis: Concussion Discharge ED - Sign-Out/Discharge Documenting (check all that apply): Patient Departure All imaging exams completed and their final reports reviewed: Yes - Discharge Plan Condition: Stable Disposition: HOME Patient Education Materials: Concussion (ED) Forms: *Work Release Referrals: Lazaro Godoy MD [Primary Care Provider] - Bar Lozano MD [Medical Doctor] - [facility] [Provider Group] Additional Instructions: FOLLOW UP WITH DR LOZANO, OCCUPATIONAL MEDICINE, OR SPORTS MEDICINE. GO TO THE EMERGENCY DEPARTMENT IF WORSE; PAIN, UNEXPLAINED VOMITING, WEAKNESS, NUMBNESS OR ANY QUESTIONS OR CONCERNS. - Billing Disposition and Condition Condition: STABLE Disposition: Home
== END 2019-09-18 17:51 | disposition home or self-care (01) ==
LOC: UCEAST 16:32
DX: S06.0X0A Concussion without loss of consciousness, initial encounter (principal); W00.2XXA Other fall from one level to another due to ice and snow, initial encounter; Y92.9 Unspecified place or not applicable; Y99.0 Civilian activity done for income or pay; Z87.891 Personal history of nicotine dependence
CPT/HCPCS: 70450; 99211; G0463